=== PATIENT | female | born 1955 | race Two or more races ===

== ENCOUNTER → 2017-10-01 15:39 | Outpatient (CLI) | payer MEDICAID, SELFPAY ==
--- NOTE | 2017-10-01 | IMM_PTH ---
PATIENT: ELIZA LIM LOC: [facility] U#:[id number] AGE/SX: 70/F ROOM: RE10/01/[address]: Dr. Andi Nazario MD : 1955 BED: DIS: SPEC #: [id number] RECD: 10/02/17 11:29 STATUS: DUANE SANAZ #: [id number] SHOAIB: 10/01/17 00:[address]: Andi Nazario DEPT: IMMUNOHISTOCHEMISTRY RECD BY: Cindy Larose Tissues: Vulva, NOS Procedures: p16 (initial) KI-67 (add) PHYSICIAN & INSTITUTION [place] [address] SPECIMEN INFORMATION: Tissue Source: Vulvar biopsy, left Clinical Info: History malignant neoplasm vulva Specimen Number: [id number] CPT code: 05496, 66086 METHODOLOGY: Deparaffinized sections of prefer/formalin-fixed tissue or PAP/DQ stained slides are incubated with monoclonal/polyclonal antibodies/oligonucleotide probes. Localization is made via biotin free immunoperoxidase method. Appropriate controls are performed and reacted as expected. Results on target cell population are indicated in the following table: RESULTS: ANTIBODY / CLONE RESULT P16 (E6H4) positive, block staining Ki-67 (30-9) positive These tests were developed and their performance characteristics determined by [facility]. They may not have been cleared or approved by the U.S. Food and Drug Administration. The FDA has determined that such clearance or approval is not necessary. 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 SJ:bernie 10/03/17 Case has been reviewed in consultation with Dr. Nava who concurs with the above diagnosis. IDC:AM
--- NOTE | 2017-10-01 11:40 | VUL_PTH ---
PATIENT: ELIZA LIM LOC: [facility] U#:[id number] AGE/SX: 70/F ROOM: RE10/01/[address]: Dr. 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 See comment. ALYSSA:bernie 10/02/17 COMMENT Immunohistochemistry ([id number]) for surrogate HPV marker (p16) supports the above diagnosis. Case has been reviewed in consultation with Dr. Nava who concurs with the above diagnosis. IDC:AM MICROSCOPIC DESCRIPTION Slides are reviewed. GROSS DESCRIPTION Received in fixative is one container labeled with the patient's name and designated biopsy left side vulva. The specimen consists of one irregular fragment of light roman soft tissue that measures 0.6 x 0.3 x 0.2 cm. The specimen is totally submitted in one cassette. / AM:bernie 10/01/17 TC:5 CPT: 48446 ADDENDUM ADDENDUM ADDENDUM ADDENDUM ADDENDUM ADDENDUM ADDENDUM ADDENDUM ADDENDUM ADDENDUM 12/22/2017 13:50 ADDENDUM 12/22/2017 13:50 ADDENDUM 12/22/2017 13:50 ADDENDUM 12/22/2017 13:50 ADDENDUM 12/22/2017 13:50 This addendum is added to incorporate an outside pathology consultation report. The case was examined at [facility] (#[id number]) and the following diagnosis was rendered. Vulva, left side, biopsy: High-grade squamous intraepithelial lesion (CELY 2-3). Please see complete above mentioned consultation report in EMR
== END ==
PROVIDERS: Visit Provider Obstetrics & Gynecology
DX: D07.1 Carcinoma in situ of vulva (principal); Z85.44 Personal history of malignant neoplasm of other female genital organs
CPT/HCPCS: 88305; 88341; 88342